=== PATIENT | female | born 1950 | race American Indian/Alaskan Native ===

== ENCOUNTER 2017-10-23 12:02 | Day surgery (SDC) | payer MEDICARE, MEDICAID ==
[~2017-10-23 12:02] MED LIST: Lactated Ringer's 500 ML IV ONE; Phenylephrine 2.5% Opht Soln OD SCH; Tropicamide 1% Opht SOLUTION OD SCH
[2017-10-23] MEDS ORDERED: Hyaluronidase Human, Recombi 150 U/ML VIAL ONE (12:26)
[2017-10-23] MEDS ORDERED: Tobramycin/Dexamethasone OPHT OINT ONE (12:26)
[2017-10-23] MEDS ORDERED: Chondroitin/Hyaluronate Opth Syringe KIT (0.55 ml-0.5 ml) IO ONE (12:26)
[2017-10-23] MEDS ORDERED: Tetracaine 0.5% Ophth (OR ONLY) ONE (12:26)
[2017-10-23] MEDS ORDERED: Carbachol 0.01% IO ONE (12:26)
[2017-10-23] MEDS ORDERED: Povidone Iodine Ophthalmic 5% Soln ONE (12:26)
[2017-10-23 14:00] LABS: CALCIUM 8.7 mg/dl (8.6-10.4)
[2017-10-23 14:20] VITALS: RESP 18
[2017-10-23] MEDS ORDERED: Propofol 10 mg/ml Inj (20 ML) ONE (14:54)
[2017-10-23] MEDS ORDERED: Sodium Chloride 0.9% 1,000 ML IV ONE (15:03)
[2017-10-23] MEDS ORDERED: Midazolam 2 MG/2 ML VIAL ONE (15:07)
[2017-10-23 16:14] VITALS: TEMP 97; O2SAT 100
[2017-10-23] MEDS ORDERED: Sodium Chloride 0.9% 1,000 ML IV SCH (16:15)
[2017-10-23 16:18] VITALS: BP 113/64; PULSE 66
--- NOTE | 2017-10-25 05:25 | OP ---
PROCEDURE DATE: 10/23/2017 PREOPERATIVE DIAGNOSIS: Hypermature cataract, right eye. POSTOPERATIVE DIAGNOSIS: Hypermature cataract, right eye. OPERATIVE PROCEDURE: Complex cataract surgery, right eye using VisionBlue. ATTENDING: Eliceo Ellis MD ANESTHESIA: Retrobulbar block. COMPLICATIONS: None. DESCRIPTION OF PROCEDURE: The patient was brought to the operating room and properly identified. Anesthesia staff administered intravenous sedation and retrobulbar block was given to the surgical eye. The patient was then prepped and draped in the usual sterile fashion. Attention was turned to the surgical eye. A lid speculum was placed into interpalpebral fissure. Sitting temporally, two paracentesis incisions were made. The anterior chamber was filled with viscoelastic and a triplanar clear corneal incision was made. Using a cystitome, anterior capsular leaflet was created. Utrata forceps were used to create a continuous curvilinear capsulorrhexis. Balanced salt solution on a cannula was used to hydrodissect and hydrodelineate the lens. The lens was then phacoemulsified with no complications. Automated irrigation and aspiration was used to remove the cortex. Viscoelastic was used to deepen the anterior chamber. The lens was placed in the capsular bag. Automated irrigation and aspiration was used to remove the viscoelastic. The anterior chamber was filled with Miochol. The wounds were hydrated with balanced salt solution. There was noted to be no leak at the end of the case and the lens was well positioned. The lid speculum was removed. The eye was given antibiotics and steroids and covered with a patch and shield. The patient was returned to the recovery room in stable condition. ADDENDUM: VisionBlue was used to highlight the anterior capsule due to hypermaturity of the lens. Capsulorhexis was completed with no complications. Eliceo Ellis MD
== END 2017-10-23 16:28 | disposition home or self-care (01) ==
LOC: C.SDS 12:02
PROVIDERS: ATTEND Ophthalmology
DX: H25.20 Age-related cataract, morgagnian type, unspecified eye (principal); Z95.2 Presence of prosthetic heart valve; Z95.0 Presence of cardiac pacemaker; I25.10 Atherosclerotic heart disease of native coronary artery without angina pectoris; I13.2 Hypertensive heart and chronic kidney disease with heart failure and with stage 5 chronic kidney disease, or end stage renal disease; I50.9 Heart failure, unspecified; N18.6 End stage renal disease; E11.22 Type 2 diabetes mellitus with diabetic chronic kidney disease; Z99.2 Dependence on renal dialysis; J44.9 Chronic obstructive pulmonary disease, unspecified; Z86.73 Personal history of transient ischemic attack (TIA), and cerebral infarction without residual deficits; E78.00 Pure hypercholesterolemia, unspecified; I27.20 Pulmonary hypertension, unspecified
CPT/HCPCS: 36415; 66982; 80048; 82948; J2250; J2704; J3010; J3470; J7040; V2632

== ENCOUNTER 2018-04-14 11:57 | Inpatient (IN) | payer MEDICARE, MEDICAID ==
--- NOTE | 2018-04-14 14:00 | C.PDOC ---
History Of Present Illness 67-year-old female with a history of end stage renal disease, referred to the ED for medical clearance for hemodialysis. On arrival, patient is not cooperating with history, states she does not know why she is here. As per primary doctor, patient has been missing sessions of dialysis. She offers no physical complaints at this time. Patient currently denies any headaches, weakness, chest pain, SOB, weakness, leg pain, fever, chills, abdominal pain, nausea, or vomiting. Time Seen by Provider: 04/14/18 13:55 Chief Complaint (Nursing): Medical Clearance History Per: Patient History/Exam Limitations: no limitations Onset/Duration Of Symptoms: Days Current Symptoms Are (Timing): Still Present Severity: None Pain Scale Rating Of: 0 Past Medical History Reviewed: Historical Data, Nursing Documentation, Vital Signs Vital Signs: Last Vital Signs Temp 98 F 04/16/18 12:30 Pulse 80 04/16/18 09:30 Resp 20 04/16/18 12:30 BP 82/42 L 04/16/18 12:30 Pulse Ox 99 04/16/18 12:30 - Medical History PMH: CHF, Diabetes, HTN, Hypercholesterolemia, Chronic Kidney Disease Surgical History: Family History: States: No Known Family Hx - Social History Hx Tobacco Use: No Hx Alcohol Use: No (unknown) Hx Substance Use: No - Immunization History Hx Tetanus Toxoid Vaccination: No Hx Influenza Vaccination: Yes Hx Pneumococcal Vaccination: No Review Of Systems Constitutional: Negative for: Fever, Chills Eyes: Positive for: Other (chronic left eye closing). Negative for: Vision Change ENT: Negative for: Nose Congestion Cardiovascular: Negative for: Chest Pain, Palpitations Respiratory: Negative for: Cough, Shortness of Breath Gastrointestinal: Negative for: Nausea, Vomiting, Abdominal Pain, Diarrhea Neurological: Negative for: Weakness, Numbness, Altered Mental Status, Headache , Dizziness Physical Exam - Physical Exam Appears: Non-toxic, No Acute Distress Skin: Warm, Dry, No Rash Head: Atraumatic, Normacephalic Eye(s): bilateral: PERRL, EOMI, left: Other (left eye appears closed, chronic as per patient) Oral Mucosa: Moist Neck: Normal ROM, Supple Chest: No Tenderness, Other (Subclavian cath in place to left chest) Cardiovascular: Rhythm Regular, No Murmur Respiratory: Normal Breath Sounds, No Rales, No Rhonchi, No Wheezing Gastrointestinal/Abdominal: Soft, No Tenderness, No Distention, No Guarding Back: Normal Inspection, No CVA Tenderness Extremity: Bilateral: Atraumatic, No Pedal Edema, Normal Color And Temperature, Normal ROM Pulses: Left Dorsalis Pedis: Normal, Right Dorsalis Pedis: Normal Neurological/Psych: Oriented x3, Normal Speech Gait: Steady ED Course And Treatment - Laboratory Results Result Diagrams: 04/16/18 11:15 04/16/18 11:15 Medical Decision Making Medical Decision Making: Initial Impression: ESRD, here for medical clearance for hemodialysis Plan: * Labs * Nephrology consult for hemodialysis Case discussed with Dr. Sales, equipment coordinator, who ordered palliative care as well as psychiatric consult for the patient. 3:35pm Spoke to Dr. Phipps, who accepts the patient for admission. Disposition - Disposition Disposition: HOSPITALIZED Disposition Time: 15:42 Condition: GOOD - Clinical Impression Clinical Impression: Medical assessment, ESRD (end stage renal disease) - Scribe Statement The provider has reviewed the documentation as recorded by the Leigh Layne Provider Attestation: All medical record entries made by the Leigh were at my direction and personally dictated by me. I have reviewed the chart and agree that the record accurately reflects my personal performance of the history, physical exam, medical decision making, and the department course for this patient. I have also personally directed, reviewed, and agree with the discharge instructions and disposition.
[2018-04-14 14:42] LABS: BASO # 0.1 K/uL (0.0-0.2); EOS # 0.3 K/uL (0.0-0.7); EOS % 4.7 % (0.0-4.0); HEMOGLOBIN 13.1 g/dL (11.0-16.0); LYMPH # 1.2 K/uL (1.0-4.3); LYMPH % 18.6 % (20.0-40.0); MEAN CELL VOLUME 91.6 fL (81.0-99.0); MEAN CORPUSCULAR HEMOGLOBIN 29.8 pg (27.0-31.0); MEAN CORPUSCULAR HGB CONC 32.5 g/dL (33.0-37.0); MEAN PLATELET VOLUME 9.3 fL (7.2-11.7); MONO # 0.5 K/uL (0.0-0.8); MONO % 7.1 % (0.0-10.0); NEUT # 4.5 K/uL (1.8-7.0); NEUT % 68.6 % (50.0-75.0); NRBC % 0.1 % (0.0-2.0); RBC 4.4 Mil/uL (3.80-5.20); RED CELL DISTRIBUTION WIDTH 15.9 % (11.5-14.5); WHITE BLOOD COUNT 6.5 K/uL (4.8-10.8)
[2018-04-14 15:25] LABS: ALB/GLOB RATIO 1.1 (1.0-2.1); ALBUMIN 4.7 g/dL (3.5-5.0); CALCIUM 9.7 mg/dl (8.6-10.4)
--- NOTE | 2018-04-14 16:13 | C.PDOC ---
History Of Present Illness Palliative Consult called by Doctor Sales for goals of care discussion Patient is a 67 yo female admitted from [facility] after refusing HD for 1 week. Patient's primary MD is Doctor Lidia Worthington. Patient was sent to ED for medical clearance for HD. On admission BUN 93, Specialist Wound Care 7.8. HD called to ED for patient to be transferred to inpatient HD unit now. medical technicians in her way to obtain consent from the patient. I spoke to Doctor Worthington over the phone who confirmed patient's tendency to ocassionally refuse HD when in bad mood. Spoke to patient's brother Wes who agreed with preceding to HD. PMH: ESRD on HD, CHF, DM, HTN, legaly blind PSH: Heart surgeries, eye surgeries, port o cath placement Soc. Hx: single, [facility] resident , Brother Marcus is surrogate decision maker , CODE status: DNR/DNI, POLST on chart Chief complaint:Patient complains of pain to her eyes and says " my eyeballs hurt". Patient denies nausea, dizziness, headache, SOB ROS: Patient easily irritated and ROS is limited from the patient. Physical exam On physical exam, patient is alert, oriented x 3 with speech that is clear. patient keeps her eyes open. When asked to open her eyes , patient reports is legally blind and her eye balls hurt. patient reports recently having eye surgeries but unable to provide more details. patient is requesting pain meds and says she had not had her eye drops. Left eye is slightly reddened and looks inflamed, slight swelling of upper eye lid. tYLENOL po GIVEN JUST RECENTLY. Breathing is regular, no SOB. Tight upper chest Waets-w-xnih for HD. Patient reports inablity to breath is is flat in bed. O2Sat 99% ra HR 117 , bp 176/87 Abdomen soft.Patient is able to freely move upper and lower extremities, mild pedal edema. I discussed my findings with Doctor Worthington, patient's brother Marcus and nursing staff. Discussed with patient the need for HD and she agreed as well. told patient about phone conversation with her brother Marcus. Marcus gave verbal consent for HD. This was witnessed by Parvez the ED charge nurse. Impression * Chronically ill lady with complex medical Hx * Elevated kidney functions ( BUN/emt b) due to patient's non compliance with scheduled HD at [facility] * Legaly blind * Acute eye pain 2nd to recently eye Sx as per patient * SOB if flat in bed possible due to fluid overload and missed HD * POLST on chart Suggestions * Agree with STAT HD * Assist patient with ADLs and promote safety * Tylenol PRN eye pain * Resume Eye drops as from [facility] * Keep HOB elevated * DNR/DNI * Would transfer patient back to [place] after HD if stable Time Seen by Provider: 04/14/18 13:55 Chief Complaint (Nursing): Medical Clearance Past Medical History Vital Signs: Last Vital Signs Temp 98.1 F 04/15/18 00:00 Pulse 88 04/15/18 00:00 Resp 20 04/15/18 00:00 BP 171/94 H 04/15/18 06:00 Pulse Ox 98 04/15/18 00:00 - Medical History PMH: CHF, Diabetes, HTN, Hypercholesterolemia, Chronic Kidney Disease Surgical History: Family History: States: No Known Family Hx - Social History Hx Tobacco Use: No Hx Alcohol Use: No (unknown) Hx Substance Use: No - Immunization History Hx Tetanus Toxoid Vaccination: No Hx Influenza Vaccination: Yes Hx Pneumococcal Vaccination: No ED Course And Treatment - Laboratory Results Result Diagrams: 04/14/18 14:37 04/14/18 14:37 O2 Sat by Pulse Oximetry: [address] Lidia Worthington Doctor Will See Patient In The: ED Counseled Patient/Family Regarding: Diagnosis - Disposition Disposition: HOSPITALIZED Disposition Time: 00:00 Condition: FAIR - POA Present On Arrival: None - Clinical Impression Clinical Impression: Medical assessment, ESRD (end stage renal disease)
--- NOTE | 2018-04-14 16:21 | CP.PCM.HP ---
<Minda Roy L - Last Filed: 04/14/18 18:29> History of Present Illness - History of Present Illness History of Present Illness: Resident History & Physical for Hospitalist Service Patient is a 76 year old female with past medical history ESRD on HD, T2DM, HTN , COPD, HLD, CHF presenting from [facility] with chief complaint of need for dialysis. History was difficult to obtain as patient was not in a good mood and unwilling to cooperate. Patient was sent by PMD as there was concern that the patient was refusing dialysis. Patient is legally blind and complained of pain in her eyes which she states is chronic. At this time she has no other complaint. Denies headache, dizziness, fever, chills, nausea, vomiting, chest pain, shortness of breath, abdominal pain, changes in bowel movements, dysuria. Past medical history: ESRD on HD, T2DM, HTN, COPD, HLD, CHF Past surgical: eye surgeries, pacemaker placement, portacath Social: denies alcohol, tobacco, recreational drug use Allergies: NKDA Family history: Mother (T2DM) PMD: Dr. Worthington Present on Admission - Present on Admission Any Indicators Present on Admission: No Review of Systems - Constitutional Constitutional: absent: Chills, Fever, Headache - EENT Eyes: absent: Change in Vision Ears: absent: Abnormal Hearing Nose/Mouth/Throat: absent: Sore Throat - Cardiovascular Cardiovascular: absent: Chest Pain, Diaphoresis, Dyspnea - Respiratory Respiratory: absent: Cough, Dyspnea, Hemoptysis - Gastrointestinal Gastrointestinal: absent: Abdominal Pain, Change in Bowel Habits, Diarrhea - Genitourinary Genitourinary: absent: Dysuria, Flank Pain - Neurological Neurological: absent: Abnormal Speech, Confusion, Dizziness, Headaches Past Patient History - Past Medical History & Family History Past Medical History?: Yes - Past Social History Smoking Status: Former Smoker - CARDIAC Hx Congestive Heart Failure: Yes Hx Hypercholesterolemia: Yes Hx Hypertension: Yes - NEUROLOGICAL Hx Neurological Disorder: Yes - HEENT Hx HEENT Problems: Yes Hx Cataracts: Yes - RENAL Hx Chronic Kidney Disease: Yes - ENDOCRINE/METABOLIC Hx Endocrine Disorders: Yes Hx Diabetes Mellitus Type 2: Yes - MUSCULOSKELETAL/RHEUMATOLOGICAL Hx Musculoskeletal Disorders: Yes Hx Falls: No - PSYCHIATRIC Hx Substance Use: No - SURGICAL HISTORY Hx Surgeries: Yes Hx Open Heart Surgery: Yes Hx Vascular Access Device: Yes (RIGHT CHEST PERMACATH) - ANESTHESIA Hx Anesthesia: Yes Hx Anesthesia Reactions: No Hx Malignant Hyperthermia: No Meds Allergies/Adverse Reactions: Allergies Allergy/AdvReac Type Severity Reaction Status Date / Time No Known Allergies Allergy Verified 08/05/15 06:38 Physical Exam - Constitutional Appears: Non-toxic, No Acute Distress - Head Exam Head Exam: ATRAUMATIC, NORMOCEPHALIC - Eye Exam Additional comments: Both eyes closed - ENT Exam ENT Exam: Mucous Membranes Moist, Normal Exam - Neck Exam Neck exam: Positive for: Normal Inspection - Respiratory Exam Respiratory Exam: Clear to Auscultation Bilateral, NORMAL BREATHING PATTERN - Cardiovascular Exam Cardiovascular Exam: REGULAR RHYTHM, +S1, +S2 - GI/Abdominal Exam GI & Abdominal Exam: Normal Bowel Sounds, Soft. absent: Tenderness - Extremities Exam Extremities exam: Positive for: normal inspection, pedal pulses present. Negative for: calf tenderness - Neurological Exam Neurological exam: Alert, CN II-XII Intact, Oriented x3 - Skin Skin Exam: Dry, Intact Results - Vital Signs Recent Vital Signs: Last Vital Signs Temp Pulse 78 04/14/18 13:20 Resp 16 04/14/18 13:20 BP 175/89 H 04/14/18 13:20 Pulse Ox 99 04/14/18 16:13 - Labs Result Diagrams: 04/14/18 14:37 04/14/18 14:37 Labs: Laboratory Results - last 24 hr 04/14/18 04/14/18 14:37 14:37 WBC 6.5 RBC 4.40 Hgb 13.1 D Hct 40.3 MCV 91.6 D MCH 29.8 MCHC 32.5 L RDW 15.9 H Plt Count 140 MPV 9.3 Neut % (Auto) 68.6 Lymph % (Auto) 18.6 L Placer % (Auto) 7.1 Eos % (Auto) 4.7 H Baso % (Auto) 1.0 Neut # (Auto) 4.5 Lymph # (Auto) 1.2 Placer # (Auto) 0.5 Eos # (Auto) 0.3 Baso # (Auto) 0.1 Sodium 146 Potassium 5.2 Chloride 108 H Carbon Dioxide 21 L Anion Gap 22 H BUN 93 H Creatinine 7.8 H* D Est GFR ( Amer) 6 Est GFR (Non-Af Amer) 5 Random Glucose 101 Calcium 9.7 Total Bilirubin 0.5 AST 19 ALT 20 Alkaline Phosphatase 75 Total Protein 8.8 H Albumin 4.7 Globulin 4.1 H Albumin/Globulin Ratio 1.1 Assessment & Plan - Assessment and Plan (Free Text) Plan: Eye pain - Tylenol/codeine 300/30 mg PRN severe pain - Tramadol 50 mg PO TID moderate pain ESRD on HD - Creatinine 7.8 - Patient to receive dialysis today - Phoslo 667 mg PO TID CHF - Patient currently asymptomatic - ECHO from 07/2015 shows moderately to severely impaired systolic function. Normal right ventricular systolic function. Bioprosthetic mitral valve which appears to have normal function. Moderate TR. Moderate-severe pulmonary hypertension. - Lasix 40 mg PO daily - Followup CXR Hypertension - Coreg 12.5 mg PO QOD6 - Continue to monitor T2DM - Novolin ISS - Accuchecks COPD - Ventolin HFA 2 puff IH RQ4 PPX - Heparin 5000 units SC Q8H - Pepcid 20 mg PO daily Minda Roy PGY-1 - Date & Time Date: 04/14/18 Time: 04:30 <Esteban Phipps H - Last Filed: 04/14/18 18:37> Results - Vital Signs Recent Vital Signs: Last Vital Signs Temp 98.1 F 04/14/18 16:55 Pulse 69 04/14/18 17:10 Resp 15 04/14/18 17:25 BP 134/100 H 04/14/18 17:25 Pulse Ox 100 04/14/18 17:25 - Labs Result Diagrams: 04/14/18 14:37 04/14/18 14:37 Labs: Laboratory Results - last 24 hr 04/14/18 04/14/18 14:37 14:37 WBC 6.5 RBC 4.40 Hgb 13.1 D Hct 40.3 MCV 91.6 D MCH 29.8 MCHC 32.5 L RDW 15.9 H Plt Count 140 MPV 9.3 Neut % (Auto) 68.6 Lymph % (Auto) 18.6 L Placer % (Auto) 7.1 Eos % (Auto) 4.7 H Baso % (Auto) 1.0 Neut # (Auto) 4.5 Lymph # (Auto) 1.2 Placer # (Auto) 0.5 Eos # (Auto) 0.3 Baso # (Auto) 0.1 Sodium 146 Potassium 5.2 Chloride 108 H Carbon Dioxide 21 L Anion Gap 22 H BUN 93 H Creatinine 7.8 H* D Est GFR ( Amer) 6 Est GFR (Non-Af Amer) 5 Random Glucose 101 Calcium 9.7 Total Bilirubin 0.5 AST 19 ALT 20 Alkaline Phosphatase 75 Total Protein 8.8 H Albumin 4.7 Globulin 4.1 H Albumin/Globulin Ratio 1.1 Attending/Attestation - Attestation I have personally seen and examined this patient.: Yes I have fully participated in the care of the patient.: Yes I have reviewed all pertinent clinical information: Yes Notes (Text): Medical attending: Patient was seen and examined by me. Agree with the above note by the resident The patient was brought in due to concerns of her missing her HD. It is not entirely clear why, the patient is alert and orietnated x 3 however she is reluctant to talk to us. She did not seem to have any immediate psychiatry disorder when we came and tried to examine the patient - however she was very reluctant to talk to me and only after sometime would she allow me to do a very brief physical exam. Esteban Phipps
[2018-04-14] MEDS ORDERED: Albuterol HFA 90 mcg/actuation (8 g) IH PRN (17:40)
[2018-04-14] MEDS ORDERED: guaiFENesin DM 100 mg-10 mg/5 ml UD PO PRN (17:50)
[2018-04-14] MEDS ORDERED: Dextrose 50% SYRINGE Inj (50 ml) IV PRN (18:35)
[2018-04-14] MEDS ORDERED: Glucagon Recombinant 1 mg Inj IM PRN (18:35)
[2018-04-14] MEDS: Simethicone 80 mg Chewtab PO SCH ×2 (21:18→23:48)
[2018-04-14] MEDS: Vitamins A & D Oint UD Foilpak TOP SCH (21:19)
[2018-04-14] MEDS: PrednisoLONE 1% Opht Susp(5 ml) OD SCH (21:19)
[2018-04-14] MEDS: (Novolin R) Insulin Human Regular 100 units/ml vial SC SCH (21:37)
[2018-04-14] MEDS: Acetaminophen-Codeine 300/30 mg Tab PO PRN (23:43)
--- NOTE | 2018-04-15 00:21 | CARD ---
APPROVED REPORT Date of service: 04/14/2018 EKG Measurement Heart [id number] <Conclusion> Atrial-sensed ventricular-paced rhythm Abnormal ECG
[2018-04-15] MEDS: Simethicone 80 mg Chewtab PO SCH ×3 (05:30→18:00)
[2018-04-15] MEDS: (Novolin R) Insulin Human Regular 100 units/ml vial SC SCH ×3 (08:18→16:30)
[2018-04-15] MEDS: Multivitamin Vitamin B Complex (Nephro-Vite) Tab PO SCH (08:18)
[2018-04-15] MEDS: Vitamins A & D Oint UD Foilpak TOP SCH ×2 (10:28→18:00)
[2018-04-15] MEDS: PrednisoLONE 1% Opht Susp(5 ml) OD SCH ×2 (10:31→18:00)
[2018-04-15] MEDS: Acetaminophen-Codeine 300/30 mg Tab PO PRN (11:35)
[2018-04-15 12:22] LABS: BASO # 0.1 K/uL (0.0-0.2); BASO % 0.8 % (0.0-2.0); EOS # 0.1 K/uL (0.0-0.7); EOS % 1.5 % (0.0-4.0); HEMOGLOBIN 13.7 g/dL (11.0-16.0); LYMPH % 16.2 % (20.0-40.0); MEAN CELL VOLUME 91.3 fL (81.0-99.0); MEAN CORPUSCULAR HEMOGLOBIN 30.2 pg (27.0-31.0); MEAN CORPUSCULAR HGB CONC 33.1 g/dL (33.0-37.0); MEAN PLATELET VOLUME 9.8 fL (7.2-11.7); MONO # 0.3 K/uL (0.0-0.8); MONO % 5.5 % (0.0-10.0); NEUT # 4.7 K/uL (1.8-7.0); RBC 4.53 Mil/uL (3.80-5.20); WHITE BLOOD COUNT 6.2 K/uL (4.8-10.8)
[2018-04-15 13:01] LABS: ALB/GLOB RATIO 1.1 (1.0-2.1); ALBUMIN 4.5 g/dL (3.5-5.0); CALCIUM 9.2 mg/dl (8.6-10.4)
--- NOTE | 2018-04-15 15:43 | CP.PCM.PN ---
<Emperatriz Lucas - Last Filed: 04/15/18 16:11> Subjective - Date & Time of Evaluation Date of Evaluation: 04/15/18 Time of Evaluation: 09:25 - Subjective Subjective: Pt examined at bedside. Nurse reports pt has been refusing morning labs and well as morning meds until she gets to speak w/ a Dr. After meeting pt, we discussed the importance of taking meds and she agreed. Pt appears confused, she believes her nurse has sent her to [facility] [place]. Pt reports she has eye discomfort, burning and tearing since her eye surgeries. Patient also reports that she doesn't refuse HD at the [place] [facility], but rather the aides do not bring her to sessions as planned. Pt denies headache, dizziness, chest pain, SOB, abd pain, nausea, vomiting, diarrhea. Objective - Vital Signs/Intake and Output Vital Signs (last 24 hours): Temp Pulse Resp BP Pulse Ox 98.1 F 79 20 172/107 H 99 04/15/18 07:09 04/15/18 07:09 04/15/18 07:09 04/15/18 11:38 04/15/18 08:18 Intake and Output: 04/15/18 04/15/18 06:59 18:59 Intake Total 150 Balance 150 - Medications Medications: Current Medications Acetaminophen/Codeine Phosphate (Tylenol/Codeine 300 Mg/30 Mg) 1 ea PO Q6 PRN PRN Reason: Pain, severe (8-10) Last Admin: 04/15/18 11:35 Dose: 1 ea Albuterol (Ventolin Hfa 90 Mcg/Actuation (8 G)) 2 puff IH RQ4 PRN PRN Reason: Shortness of Breath Amlodipine Besylate (Norvasc) 10 mg PO DAILY [facility] Calcium Acetate (Phoslo) 667 mg PO TID [facility] Last Admin: 04/15/18 13:38 Dose: Not Given Carvedilol (Coreg) 12.5 mg PO BID [facility] Last Admin: 04/15/18 10:20 Dose: 12.5 mg Dextrose (Dextrose 50% Inj) 0 ml IV STAT PRN; Protocol PRN Reason: Hypoglycemia Protocol Dextrose (Glutose 15) 0 gm PO ONCE PRN; Protocol PRN Reason: Hypoglycemia Protocol Famotidine (Pepcid) 20 mg PO HS [facility] Last Admin: 08/21/18 21:18 Dose: 20 mg Furosemide (Lasix) 40 mg PO DAILY [facility] Last Admin: 04/15/18 10:19 Dose: 40 mg Glucagon (Glucagen Diagnostic Kit) 1 mg IM STAT PRN; Protocol PRN Reason: Hypoglycemia Protocol Guaifenesin/Dextromethorphan (Robitussin Dm) 5 ml PO Q6H PRN PRN Reason: Cough Heparin Sodium (Porcine) (Heparin) 5,000 units SC Q8 [facility] Last Admin: 04/15/18 13:38 Dose: Not Given Hydralazine HCl (Apresoline) 25 mg PO Q4 PRN PRN Reason: Other Dextrose (Dextrose 5% In Water 1000 Ml) 1,000 mls @ 0 mls/hr IV .Q0M PRN; Protocol; Per Protocol PRN Reason: Hypoglycemia Protocol Insulin Human Regular (Novolin R) 0 unit SC ACHS [facility] PRN Reason: Protocol Last Admin: 04/15/18 11:39 Dose: Not Given Prednisolone Acetate (Pred Forte 1% Opht Susp) 0 ml OD BID [facility] Last Admin: 04/15/18 10:31 Dose: Not Given Simethicone (Mylicon Chew Tab) 80 mg PO Q6 [facility] Last Admin: 04/15/18 12:41 Dose: Not Given Tramadol HCl (Ultram) 50 mg PO TID PRN PRN Reason: Pain, moderate (4-7) Last Admin: 04/15/18 06:44 Dose: 50 mg Vitamin A (Vitamin A & D Oint Ud Foilpak) 1 ea TOP BID [facility] Last Admin: 04/15/18 10:28 Dose: 1 ea Vitamin B Complex/Vit C/Folic Acid (Nephro-Chapito) 1 tab PO 0800 [facility] Last Admin: 04/15/18 08:18 Dose: Not Given - Labs Labs: 04/15/18 12:08 04/15/18 12:08 - Constitutional Appears: Non-toxic, No Acute Distress - Head Exam Head Exam: ATRAUMATIC, NORMAL INSPECTION, NORMOCEPHALIC - Eye Exam Eye Exam: EOMI, Normal appearance Pupil Exam: PERRL - ENT Exam ENT Exam: Mucous Membranes Moist, Normal Exam - Neck Exam Neck Exam: Normal Inspection. absent: Lymphadenopathy - Respiratory Exam Respiratory Exam: Clear to Ausculation Bilateral, NORMAL BREATHING PATTERN. absent: Rales, Wheezes - Cardiovascular Exam Cardiovascular Exam: REGULAR RHYTHM, +S1, +S2. absent: Tachycardia, Murmur - GI/Abdominal Exam GI & Abdominal Exam: Soft, Normal Bowel Sounds. absent: Distended, Tenderness - Extremities Exam Extremities Exam: Normal Capillary Refill, Normal Inspection. absent: Calf Tenderness, Pedal Edema - Neurological Exam Neurological Exam: Alert, Awake, Normal Gait - Psychiatric Exam Psychiatric exam: Agitated - Skin Skin Exam: Dry, Intact, Normal Color, Warm Assessment and Plan - Assessment and Plan (Free Text) Assessment: 67 yo F admitted for HD non compliance ESRD on HD - s/p HD 04/14 - Creatinine 4.1 - Phoslo 667 mg PO TID CHF - Patient currently asymptomatic - ECHO from 07/2015 shows moderately to severely impaired systolic function. Normal right ventricular systolic function. Bioprosthetic mitral valve which appears to have normal function. Moderate TR. Moderate-severe pulmonary hypertension. - Lasix 40 mg PO daily HTN - Coreg 12.5 mg PO BID - Hydralazine 25mg PO PRN - Continue to monitor DM2 - Novolin ISS - Accuchecks ACHS COPD - Ventolin HFA 2 puff IH RQ4 Eye pain - Tylenol/codeine 300/30 mg PRN severe pain - Tramadol 50 mg PO TID moderate pain PPX - Heparin 5000 units SC Q8H - Pepcid 20 mg PO daily DNR/DNI <Esteban Phipps H - Last Filed: 04/15/18 18:07> Objective - Vital Signs/Intake and Output Vital Signs (last 24 hours): Temp Pulse Resp BP Pulse Ox 98.1 F 79 20 172/107 H 99 04/15/18 07:09 04/15/18 07:09 04/15/18 07:09 04/15/18 11:38 04/15/18 08:18 Intake and Output: 04/15/18 04/15/18 06:59 18:59 Intake Total 150 Balance 150 - Medications Medications: Current Medications Acetaminophen/Codeine Phosphate (Tylenol/Codeine 300 Mg/30 Mg) 1 ea PO Q6 PRN PRN Reason: Pain, severe (8-10) Last Admin: 04/15/18 11:35 Dose: 1 ea Albuterol (Ventolin Hfa 90 Mcg/Actuation (8 G)) 2 puff IH RQ4 PRN PRN Reason: Shortness of Breath Calcium Acetate (Phoslo) 667 mg PO TID [facility] Last Admin: 04/15/18 13:38 Dose: Not Given Carvedilol (Coreg) 12.5 mg PO BID [facility] Last Admin: 04/15/18 10:20 Dose: 12.5 mg Dextrose (Dextrose 50% Inj) 0 ml IV STAT PRN; Protocol PRN Reason: Hypoglycemia Protocol Dextrose (Glutose 15) 0 gm PO ONCE PRN; Protocol PRN Reason: Hypoglycemia Protocol Famotidine (Pepcid) 20 mg PO HS [facility] Last Admin: 04/14/18 21:18 Dose: 20 mg Furosemide (Lasix) 40 mg PO DAILY [facility] Last Admin: 04/15/18 10:19 Dose: 40 mg Glucagon (Glucagen Diagnostic Kit) 1 mg IM STAT PRN; Protocol PRN Reason: Hypoglycemia Protocol Guaifenesin/Dextromethorphan (Robitussin Dm) 5 ml PO Q6H PRN PRN Reason: Cough Heparin Sodium (Porcine) (Heparin) 5,000 units SC Q8 [facility] Last Admin: 04/15/18 13:38 Dose: Not Given Hydralazine HCl (Apresoline) 25 mg PO Q4 PRN PRN Reason: Other Dextrose (Dextrose 5% In Water 1000 Ml) 1,000 mls @ 0 mls/hr IV .Q0M PRN; Protocol; Per Protocol PRN Reason: Hypoglycemia Protocol Insulin Human Regular (Novolin R) 0 unit SC ACHS [facility] PRN Reason: Protocol Last Admin: 04/15/18 11:39 Dose: Not Given Prednisolone Acetate (Pred Forte 1% Opht Susp) 0 ml OD BID [facility] Last Admin: 04/15/18 10:31 Dose: Not Given Simethicone (Mylicon Chew Tab) 80 mg PO Q6 [facility] Last Admin: 04/15/18 12:41 Dose: Not Given Tramadol HCl (Ultram) 50 mg PO TID PRN PRN Reason: Pain, moderate (4-7) Last Admin: 04/15/18 06:44 Dose: 50 mg Vitamin A (Vitamin A & D Oint Ud Foilpak) 1 ea TOP BID [facility] Last Admin: 04/15/18 10:28 Dose: 1 ea Vitamin B Complex/Vit C/Folic Acid (Nephro-Chapito) 1 tab PO 0800 [facility] Last Admin: 04/15/18 08:18 Dose: Not Given - Labs Labs: 04/15/18 12:08 04/15/18 12:08 Attending/Attestation - Attestation I have personally seen and examined this patient.: Yes I have fully participated in the care of the patient.: Yes I have reviewed all pertinent clinical information, including history, physical exam and plan: Yes Notes (Text): 04/15/18 18:07 Medical attending: Patient was seen and examined by me, reviewed the above note by the medical reimbursement specialist, and agree with the above note. The patient was more willing to talk to us today when we saw her. She did not have any acute complaints or concerns. She explained to us that she would rather have not been here. As mentioned yesterday she had hemodialysis. She denied chest pain, shortness of breath, denied headaches, denied abdominal pain Thank you very much, Esteban Phipps
--- NOTE | 2018-04-15 16:13 | CP.PCM.CON ---
History of Present Illness - History of Present Illness History of Present Illness: Nephrology Consultation Note: Assessment: Stable non-compliant to HD and missed HD HTN urgency Diabetic chronic Kidney Disease (E11.22) Hypertensive Chronic Kidney Disease (I12.0) End stage renal disease (N18.6) dependence on hemodialysis (Z99.2) (TTS) via PC Anemia (D64.9), Hyperphosphatemia (E83.39), Secondary Hyperparathyroidism (E21.1 ), HTN (I12.0) Plan: Pt had HD last night, No acute need for dialysis today. Will plan for dialysis tomorrow. Continue with Nephrovite 1 tab/day. PRBC as needed for anemia. not on KWAKU with dialysis as last Hb 13.7 Continue with phos binders, last phos level 4.0 Continue with calcitriol. BP control with meds as ordered. Patient not on RAAS rl. BP usually better controlled in outpt HD unit. anticipate improvement in BP with HD. added prn hydralazine Glycemic control, Dialysis consistent diet Further work up/management as per primary team Dose meds/antibiotics (if needed) for ESRD status. Avoid fleets enema/magnesium based laxatives. psych and palliative care consult requested. d/c planning Thanks for allowing me to participate in care of your patient. Will follow patient with you. Please call if any Qs Dr Paulino Sales Office: [phone] Chief Complaint; none at this time Reason for consult; ESRD HPI: Pt is a 67 F with hx of ESRD on hemodialysis (TTS) via PC , last dialysis 2 weeks ago as mostly non-compliant to HD and refuses HD often and or cuts treatment time, chronic anemia, hyperphosphatemia, secondary hyperparathyroidism , Diabetes Mellitus, hypertension was transferred to hospital as she missed HD approx for 2 weeks. Renal consult requested for ESRD management. pt was seen, she wasn't much interested in discussing. said, feels okay ROS: unable to obtain much from her as she wasn't communicating much Physical Examination: General Appearance: Comfortable, in no acute respiratory distress, co-operative . Vitals reviewed and noted as below Head; Atraumatic, normocephalic ENT: no ulcers no thrush. Tongue is midline. Oropharynx: no rash or ulcers. 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 Breath sounds bilateral equal and clear Heart: Normal rate. s1s2 normal. No rub or gallop. Extremities: 1+ edema. No varicose veins Neurological: Patient is sleeping but later awake. No focal deficit. Strength bilateral appropriate and equal Skin: Warm and dry. Normal turgor. No rash. Palpitation: Normal elasticity for age Abdomen: Abdomen is soft. Bowel sounds +. There is no abdominal tenderness, no guarding/rigidity or organomegaly Psych: lack insight and has flat affect/mood MSK: no joint tenderness or swelling. Digits and nails normal, no deformity : kidney or bladder not palpable Access: PC Labs/imaging reviewed. Past medical history, past surgical history, family history, social history, allergy reviewed and noted as below Family Hx: no hx of CKD. Non contributory Past Patient History - Past Medical History & Family History Past Medical History?: Yes - Past Social History Smoking Status: Unknown If Ever Smoked - CARDIAC Hx Congestive Heart Failure: Yes Hx Hypercholesterolemia: Yes Hx Hypertension: Yes - NEUROLOGICAL Hx Neurological Disorder: Yes - HEENT Hx HEENT Problems: Yes Hx Cataracts: Yes - RENAL Hx Chronic Kidney Disease: Yes - ENDOCRINE/METABOLIC Hx Endocrine Disorders: Yes Hx Diabetes Mellitus Type 2: Yes - MUSCULOSKELETAL/RHEUMATOLOGICAL Hx Falls: No - PSYCHIATRIC Hx Substance Use: No - SURGICAL HISTORY Hx Surgeries: Yes Hx Open Heart Surgery: Yes Hx Vascular Access Device: Yes (RIGHT CHEST PERMACATH) - ANESTHESIA Hx Anesthesia: Yes Hx Anesthesia Reactions: No Hx Malignant Hyperthermia: No Meds Allergies/Adverse Reactions: Allergies Allergy/AdvReac Type Severity Reaction Status Date / Time No Known Allergies Allergy Verified 08/05/15 06:38 - Medications Medications: Current Medications Acetaminophen/Codeine Phosphate (Tylenol/Codeine 300 Mg/30 Mg) 1 ea PO Q6 PRN PRN Reason: Pain, severe (8-10) Last Admin: 04/15/18 11:35 Dose: 1 ea Albuterol (Ventolin Hfa 90 Mcg/Actuation (8 G)) 2 puff IH RQ4 PRN PRN Reason: Shortness of Breath Calcium Acetate (Phoslo) 667 mg PO TID [facility] Last Admin: 04/15/18 13:38 Dose: Not Given Carvedilol (Coreg) 12.5 mg PO BID [facility] Last Admin: 04/15/18 10:20 Dose: 12.5 mg Dextrose (Dextrose 50% Inj) 0 ml IV STAT PRN; Protocol PRN Reason: Hypoglycemia Protocol Dextrose (Glutose 15) 0 gm PO ONCE PRN; Protocol PRN Reason: Hypoglycemia Protocol Famotidine (Pepcid) 20 mg PO HS [facility] Last Admin: 04/14/18 21:18 Dose: 20 mg Furosemide (Lasix) 40 mg PO DAILY [facility] Last Admin: 04/15/18 10:19 Dose: 40 mg Glucagon (Glucagen Diagnostic Kit) 1 mg IM STAT PRN; Protocol PRN Reason: Hypoglycemia Protocol Guaifenesin/Dextromethorphan (Robitussin Dm) 5 ml PO Q6H PRN PRN Reason: Cough Heparin Sodium (Porcine) (Heparin) 5,000 units SC Q8 [facility] Last Admin: 04/15/18 13:38 Dose: Not Given Hydralazine HCl (Apresoline) 25 mg PO Q4 PRN PRN Reason: Other Dextrose (Dextrose 5% In Water 1000 Ml) 1,000 mls @ 0 mls/hr IV .Q0M PRN; Protocol; Per Protocol PRN Reason: Hypoglycemia Protocol Insulin Human Regular (Novolin R) 0 unit SC ACHS [facility] PRN Reason: Protocol Last Admin: 04/15/18 11:39 Dose: Not Given Prednisolone Acetate (Pred Forte 1% Opht Susp) 0 ml OD BID [facility] Last Admin: 04/15/18 10:31 Dose: Not Given Simethicone (Mylicon Chew Tab) 80 mg PO Q6 [facility] Last Admin: 04/15/18 12:41 Dose: Not Given Tramadol HCl (Ultram) 50 mg PO TID PRN PRN Reason: Pain, moderate (4-7) Last Admin: 04/15/18 06:44 Dose: 50 mg Vitamin A (Vitamin A & D Oint Ud Foilpak) 1 ea TOP BID [facility] Last Admin: 04/15/18 10:28 Dose: 1 ea Vitamin B Complex/Vit C/Folic Acid (Nephro-Chapito) 1 tab PO 0800 [facility] Last Admin: 04/15/18 08:18 Dose: Not Given Results - Vital Signs Recent Vital Signs: Last Vital Signs Temp 98.1 F 04/15/18 07:09 Pulse 79 04/15/18 07:09 Resp 20 04/15/18 07:09 BP 172/107 H 04/15/18 11:38 Pulse Ox 99 04/15/18 08:18 - Labs Result Diagrams: 04/15/18 12:08 04/15/18 12:08 Labs: Laboratory Results - last 24 hr 04/14/18 04/15/18 04/15/18 19:12 11:05 12:08 WBC 6.2 RBC 4.53 Hgb 13.7 Hct 41.4 MCV 91.3 MCH 30.2 MCHC 33.1 RDW 15.0 H Plt Count 127 L MPV 9.8 Neut % (Auto) 76.0 H Lymph % (Auto) 16.2 L Jefferson % (Auto) 5.5 Eos % (Auto) 1.5 Baso % (Auto) 0.8 Neut # (Auto) 4.7 Lymph # (Auto) 1.0 Jefferson # (Auto) 0.3 Eos # (Auto) 0.1 Baso # (Auto) 0.1 Sodium Potassium Chloride Carbon Dioxide Anion Gap BUN Creatinine Est GFR ( Amer) Est GFR (Non-Af Amer) POC Glucose (mg/dL) 96 103 Random Glucose Calcium Phosphorus Magnesium Total Bilirubin AST ALT Alkaline Phosphatase Total Protein Albumin Globulin Albumin/Globulin Ratio 04/15/18 12:08 WBC RBC Hgb Hct MCV MCH MCHC RDW Plt Count MPV Neut % (Auto) Lymph % (Auto) Jefferson % (Auto) Eos % (Auto) Baso % (Auto) Neut # (Auto) Lymph # (Auto) Jefferson # (Auto) Eos # (Auto) Baso # (Auto) Sodium 140 Potassium 4.5 Chloride 98 Carbon Dioxide 28 Anion Gap 18 BUN 34 H Creatinine 4.1 H Est GFR ( Amer) 13 Est GFR (Non-Af Amer) 11 POC Glucose (mg/dL) Random Glucose 99 Calcium 9.2 Phosphorus 4.0 Magnesium 2.1 Total Bilirubin 0.6 AST 21 ALT 18 Alkaline Phosphatase 69 Total Protein 8.5 H Albumin 4.5 Globulin 4.0 H Albumin/Globulin Ratio 1.1
[2018-04-16] MEDS: Simethicone 80 mg Chewtab PO SCH ×4 (00:43→17:57)
[2018-04-16] MEDS: (Novolin R) Insulin Human Regular 100 units/ml vial SC SCH ×4 (07:30→21:24)
[2018-04-16] MEDS: Multivitamin Vitamin B Complex (Nephro-Vite) Tab PO SCH (08:56)
[2018-04-16] MEDS: PrednisoLONE 1% Opht Susp(5 ml) OD SCH ×2 (10:00→17:57)
[2018-04-16] MEDS: Vitamins A & D Oint UD Foilpak TOP SCH ×2 (10:00→17:57)
--- NOTE | 2018-04-16 10:15 | CP.PCM.PN ---
Subjective - Date & Time of Evaluation Date of Evaluation: 04/16/18 Time of Evaluation: 07:40 Objective - Vital Signs/Intake and Output Vital Signs (last 24 hours): Temp Pulse Resp BP Pulse Ox 98.6 F 86 20 174/96 H 96 04/16/18 08:00 04/16/18 08:00 04/16/18 08:00 04/16/18 08:00 04/16/18 08:00 - Medications Medications: Current Medications Acetaminophen/Codeine Phosphate (Tylenol/Codeine 300 Mg/30 Mg) 1 ea PO Q6 PRN PRN Reason: Pain, severe (8-10) Last Admin: 04/15/18 11:35 Dose: 1 ea Albuterol (Ventolin Hfa 90 Mcg/Actuation (8 G)) 2 puff IH RQ4 PRN PRN Reason: Shortness of Breath Calcium Acetate (Phoslo) 667 mg PO TID [facility] Last Admin: 04/15/18 18:00 Dose: Not Given Carvedilol (Coreg) 12.5 mg PO BID [facility] Last Admin: 04/15/18 18:00 Dose: Not Given Dextrose (Dextrose 50% Inj) 0 ml IV STAT PRN; Protocol PRN Reason: Hypoglycemia Protocol Dextrose (Glutose 15) 0 gm PO ONCE PRN; Protocol PRN Reason: Hypoglycemia Protocol Famotidine (Pepcid) 20 mg PO HS [facility] Last Admin: 04/15/18 21:35 Dose: Not Given Furosemide (Lasix) 40 mg PO DAILY [facility] Last Admin: 04/15/18 10:19 Dose: 40 mg Glucagon (Glucagen Diagnostic Kit) 1 mg IM STAT PRN; Protocol PRN Reason: Hypoglycemia Protocol Guaifenesin/Dextromethorphan (Robitussin Dm) 5 ml PO Q6H PRN PRN Reason: Cough Heparin Sodium (Porcine) (Heparin) 5,000 units SC Q8 [facility] Last Admin: 04/16/18 05:43 Dose: Not Given Hydralazine HCl (Apresoline) 25 mg PO Q4 PRN PRN Reason: Other Dextrose (Dextrose 5% In Water 1000 Ml) 1,000 mls @ 0 mls/hr IV .Q0M PRN; Protocol; Per Protocol PRN Reason: Hypoglycemia Protocol Insulin Human Regular (Novolin R) 0 unit SC ACHS [facility] PRN Reason: Protocol Last Admin: 04/16/18 07:30 Dose: Not Given Prednisolone Acetate (Pred Forte 1% Opht Susp) 0 ml OD BID [facility] Last Admin: 04/15/18 18:00 Dose: Not Given Simethicone (Mylicon Chew Tab) 80 mg PO Q6 [facility] Last Admin: 04/16/18 05:44 Dose: Not Given Tramadol HCl (Ultram) 50 mg PO TID PRN PRN Reason: Pain, moderate (4-7) Last Admin: 04/15/18 06:44 Dose: 50 mg Vitamin A (Vitamin A & D Oint Ud Foilpak) 1 ea TOP BID [facility] Last Admin: 04/15/18 18:00 Dose: Not Given Vitamin B Complex/Vit C/Folic Acid (Nephro-Chapito) 1 tab PO 0800 [facility] Last Admin: 04/16/18 08:56 Dose: Not Given - Labs Labs: 04/15/18 12:08 04/15/18 12:08
[2018-04-16 11:15] VITALS: PULSE 88
[2018-04-16 11:30] LABS: BASO % 0.4 % (0.0-2.0); EOS # 0.1 K/uL (0.0-0.7); EOS % 1.6 % (0.0-4.0); HEMOGLOBIN 12.4 g/dL (11.0-16.0); LYMPH # 1.3 K/uL (1.0-4.3); LYMPH % 17.2 % (20.0-40.0); MEAN CELL VOLUME 90.5 fL (81.0-99.0); MEAN CORPUSCULAR HEMOGLOBIN 29.9 pg (27.0-31.0); MEAN PLATELET VOLUME 9.4 fL (7.2-11.7); MONO # 0.3 K/uL (0.0-0.8); MONO % 3.5 % (0.0-10.0); NEUT # 5.7 K/uL (1.8-7.0); NEUT % 77.3 % (50.0-75.0); RBC 4.15 Mil/uL (3.80-5.20); RED CELL DISTRIBUTION WIDTH 15.2 % (11.5-14.5); WHITE BLOOD COUNT 7.4 K/uL (4.8-10.8)
[2018-04-16 11:38] LABS: ALB/GLOB RATIO 1.1 (1.0-2.1); ALBUMIN 3.9 g/dL (3.5-5.0); CALCIUM 8.8 mg/dl (8.6-10.4)
--- NOTE | 2018-04-16 12:15 | CP.PCM.PN ---
Subjective - Date & Time of Evaluation Date of Evaluation: 04/16/18 Time of Evaluation: 12:14 - Subjective Subjective: Nephrology Consultation Note: Assessment: Stable non-compliant to HD and missed HD HTN urgency Diabetic chronic Kidney Disease (E11.22) Hypertensive Chronic Kidney Disease (I12.0) End stage renal disease (N18.6) dependence on hemodialysis (Z99.2) (TTS) via PC Anemia (D64.9), Hyperphosphatemia (E83.39), Secondary Hyperparathyroidism (E21.1 ), HTN (I12.0) Plan: Will plan for dialysis today per TTS schedule Continue with Nephrovite 1 tab/ day. PRBC as needed for anemia. not on KWAKU with dialysis as last Hb 13.7 Continue with phos binders, last phos level 4.0 Continue with calcitriol. BP control with meds as ordered. Patient not on RAAS rl. BP usually better controlled or lower in outpt HD unit. anticipate improvement in BP with HD. Glycemic control, Dialysis consistent diet Further work up/management as per primary team Dose meds/antibiotics (if needed) for ESRD status. Avoid fleets enema/magnesium based laxatives. psych and palliative care consult requested. d/c planning Thanks for allowing me to participate in care of your patient. Will follow patient with you. Please call if any Qs. had d/w team Dr Paulino Sales Office: [phone] Chief Complaint; none at this time Reason for consult; ESRD HPI: Pt is a 67 F with hx of ESRD on hemodialysis (TTS) via PC , last dialysis 2 weeks ago as mostly non-compliant to HD and refuses HD often and or cuts treatment time, chronic anemia, hyperphosphatemia, secondary hyperparathyroidism , Diabetes Mellitus, hypertension was transferred to hospital as she missed HD approx for 2 weeks. Renal consult requested for ESRD management. pt was seen, she wasn't much interested in discussing. said, feels okay ROS: unable to obtain much from her as she wasn't communicating much Physical Examination: seen on HD General Appearance: Comfortable, in no acute respiratory distress, co-operative . 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 Breath sounds bilateral equal and clear Heart: Normal rate. s1s2 normal. No rub or gallop. Extremities: trace edema. No varicose veins Neurological: Patient is sleeping but later awake. No focal deficit. Strength bilateral appropriate and equal Skin: Warm and dry. Normal turgor. No rash. Palpitation: Normal elasticity for age Abdomen: Abdomen is soft. Bowel sounds +. There is no abdominal tenderness, no guarding/rigidity or organomegaly Psych: lack insight and has flat affect/mood MSK: no joint tenderness or swelling. Digits and nails normal, no deformity : kidney or bladder not palpable Access: PC Labs/imaging reviewed. Past medical history, past surgical history, family history, social history, allergy reviewed and noted as below Family Hx: no hx of CKD. Non contributory Objective - Vital Signs/Intake and Output Vital Signs (last 24 hours): Temp Pulse Resp BP Pulse Ox 97.8 F 80 17 89/44 L 98 04/16/18 09:30 04/16/18 09:30 04/16/18 09:30 04/16/18 12:00 04/16/18 09:30 - Medications Medications: Current Medications Acetaminophen/Codeine Phosphate (Tylenol/Codeine 300 Mg/30 Mg) 1 ea PO Q6 PRN PRN Reason: Pain, severe (8-10) Last Admin: 04/15/18 11:35 Dose: 1 ea Albuterol (Ventolin Hfa 90 Mcg/Actuation (8 G)) 2 puff IH RQ4 PRN PRN Reason: Shortness of Breath Calcium Acetate (Phoslo) 667 mg PO TID [facility] Last Admin: 04/16/18 10:00 Dose: Not Given Carvedilol (Coreg) 12.5 mg PO BID [facility] Last Admin: 04/16/18 10:00 Dose: Not Given Dextrose (Dextrose 50% Inj) 0 ml IV STAT PRN; Protocol PRN Reason: Hypoglycemia Protocol Dextrose (Glutose 15) 0 gm PO ONCE PRN; Protocol PRN Reason: Hypoglycemia Protocol Famotidine (Pepcid) 20 mg PO HS [facility] Last Admin: 04/15/18 21:35 Dose: Not Given Furosemide (Lasix) 40 mg PO DAILY [facility] Last Admin: 04/16/18 10:00 Dose: Not Given Glucagon (Glucagen Diagnostic Kit) 1 mg IM STAT PRN; Protocol PRN Reason: Hypoglycemia Protocol Guaifenesin/Dextromethorphan (Robitussin Dm) 5 ml PO Q6H PRN PRN Reason: Cough Heparin Sodium (Porcine) (Heparin) 5,000 units SC Q8 [facility] Last Admin: 04/16/18 05:43 Dose: Not Given Heparin Sodium (Porcine) (Heparin) 3,700 units IVP TTS [facility] Stop: 04/23/18 10:01 Hydralazine HCl (Apresoline) 25 mg PO Q4 PRN PRN Reason: Other Dextrose (Dextrose 5% In Water 1000 Ml) 1,000 mls @ 0 mls/hr IV .Q0M PRN; Protocol; Per Protocol PRN Reason: Hypoglycemia Protocol Insulin Human Regular (Novolin R) 0 unit SC ACHS [facility] PRN Reason: Protocol Last Admin: 04/16/18 12:07 Dose: Not Given Prednisolone Acetate (Pred Forte 1% Opht Susp) 0 ml OD BID [facility] Last Admin: 04/16/18 10:00 Dose: Not Given Simethicone (Mylicon Chew Tab) 80 mg PO Q6 [facility] Last Admin: 04/16/18 12:07 Dose: Not Given Tramadol HCl (Ultram) 50 mg PO TID PRN PRN Reason: Pain, moderate (4-7) Last Admin: 04/15/18 06:44 Dose: 50 mg Vitamin A (Vitamin A & D Oint Ud Foilpak) 1 ea TOP BID [facility] Last Admin: 04/16/18 10:00 Dose: Not Given Vitamin B Complex/Vit C/Folic Acid (Nephro-Chapito) 1 tab PO 0800 [facility] Last Admin: 04/16/18 08:56 Dose: Not Given - Labs Labs: 04/16/18 11:15 04/16/18 11:15
[2018-04-16 13:41] VITALS: BP 82/42; RESP 20; TEMP 98; O2SAT 99
--- NOTE | 2018-04-16 13:55 | PCM.PSYCH ---
Initial Psychiatric Evaluation - Initial Psychiatric Evaluation Chief Complaint (in patient's own words): "I'm fine" History of Present Illness and Precipitating Events: The pt is seen, chart reviewed and case discussed Furniture Designer also spoke to her brother with her permission. Mr. Grewal says he is her legal guardian. Pt lives at [facility], she is alone but she says she has 4 daughters. Pt is confused and irritable, very post historian. Consultation is asked for capacity to make medical decisions. She replies most questions with questions and gives irate, at times sarcastic answers. She also doesn't know the time or place except for being in a hospital She knows she is getting hemodialysis (got one today) but cannot explain why she refuses at times. She could not verbalize the risks of not getting dialysis or refusing important blood work, medications or food She is more focused on who is doing what and it appears she may be paranoid and very anxious due to not knowing what's going on (plus she is blind). Denies SI, HI but again, she is evasive and hostile. Mr. Grewal agrees that the pt needs HD and meds, but he is against psych meds ( agreed with anxiety/sleep meds, though) He reported that the pt sometimes refuses HD even though "she knows" the risks. "It's her personality" he said. Then, w/o HD, she gets very confused, delirious. Current Medications: Active Medications Generic Name Dose Route Start Last Admin Trade Name Freq PRN Reason Stop Dose Admin Acetaminophen/Codeine Phosphate 1 ea 04/14/18 17:39 04/15/18 11:35 Tylenol/Codeine 300 Mg/30 Mg PO 1 ea Q6 PRN Administration Pain, severe (8-10) Albuterol 2 puff 04/14/18 17:40 Ventolin Hfa 90 Mcg/Actuation (8 G) IH RQ4 PRN Shortness of Breath Calcium Acetate 667 mg 04/14/18 18:00 04/16/18 10:00 Phoslo PO Not Given TID JAVIER Carvedilol 12.5 mg 04/15/18 10:00 04/16/18 10:00 Coreg PO Not Given BID JAVIER Dextrose 0 ml 04/14/18 18:35 Dextrose 50% Inj IV STAT PRN Hypoglycemia Protocol Protocol Dextrose 0 gm 04/14/18 18:35 Glutose 15 PO ONCE PRN Hypoglycemia Protocol Protocol Famotidine 20 mg 04/14/18 22:00 04/15/18 21:35 Pepcid PO Not Given HS JAVIER Furosemide 40 mg 04/15/18 10:00 04/16/18 10:00 Lasix PO Not Given DAILY JAVIER Glucagon 1 mg 04/14/18 18:35 Glucagen Diagnostic Kit IM STAT PRN Hypoglycemia Protocol Protocol Guaifenesin/Dextromethorphan 5 ml 04/14/18 17:50 Robitussin Dm PO Q6H PRN Cough Heparin Sodium (Porcine) 5,000 units 04/14/18 22:00 04/16/18 05:43 Heparin SC Not Given Q8 JAVIER Heparin Sodium (Porcine) 3,700 units 04/16/18 10:00 04/16/18 12:20 Heparin IVP 04/23/18 10:01 3,700 units TTS JAVIER Administration Hydralazine HCl 25 mg 04/15/18 14:53 Apresoline PO Q4 PRN Other Dextrose 1,000 mls @ 0 mls/hr 04/14/18 18:35 Dextrose 5% In Water 1000 Ml IV .Q0M PRN Hypoglycemia Protocol Protocol Per Protocol Insulin Human Regular 0 unit 04/14/18 22:00 04/16/18 12:07 Novolin R SC Not Given ACHS [facility] Protocol Prednisolone Acetate 0 ml 04/14/18 18:00 04/16/18 10:00 Pred Forte 1% Opht Susp OD Not Given BID [facility] Simethicone 80 mg 04/14/18 18:00 04/16/18 12:07 Mylicon Chew Tab PO Not Given Q6 JAVIER Tramadol HCl 50 mg 04/14/18 17:52 04/15/18 06:44 Ultram PO 50 mg TID PRN Administration Pain, moderate (4-7) Vitamin A 1 ea 04/14/18 18:00 04/16/18 10:00 Vitamin A & D Oint Ud Foilpak TOP Not Given BID [facility] Vitamin B Complex/Vit C/Folic Acid 1 tab 04/15/18 08:00 04/16/18 08:56 Nephro-Chapito PO Not Given 0800 [facility] Past Psychiatric History - Past Psychiatric History Previous Treatment History: None (no previous admission, treatment, suicide attempt) Pertinent Medical Hx (Current Medical&Sleep Prob, Allergies): Allergies Allergy/AdvReac Type Severity Reaction Status Date / Time No Known Allergies Allergy Verified 08/05/15 06:38 Albuterol HFA [Ventolin HFA 90 mcg/actuation (8 g)] 2 puff IH Q4 PRN 10/13/17 Acetaminophen [Tylenol] 650 mg PO DAILY 04/14/18 Calcium Acetate [Phoslo] 667 mg PO TID 04/14/18 Carvedilol [Coreg] 12.5 mg PO QOD6 04/14/18 Famotidine [Pepcid] 20 mg PO HS 04/14/18 Insulin Human Regular [Novolin R] 0 unit IJ ACHS 04/14/18 Prednisolone Acetate [Pred Forte] 1 ml OD BID 04/14/18 Simethicone [Mylicon Chew Tab] 80 mg PO Q6 04/14/18 traMADol [Ultram] 50 mg PO TID 04/14/18 Review of Systems - Neurological Neurological: Confusion - Psychiatric Psychiatric: Abnormal Sleep Pattern, Anxiety, Confusion, Difficulty Concentrating, Irritability, Mood Swings. absent: Homicidal Ideation, Suicidal Ideation Mental Status Examination - Personal Presentation Personal Presentation: Looks older than stated age - Affect Affect: Constricted - Motor Activity Motor Activity: Calm - Reliability in Providing Information Reliability in Providing Information: Fair - Speech Speech: Disorganized - Mood Mood: Anxious, Other (irate) - Formal Thought Process Formal Thought Process: Paranoia - Cognitive Functions Orientation: Person, Place (only hospital) Sensorium: Alert Attention/Concentration: Easily distracted Abstract Thinking: Dyer Estimate of Intelligence: Below average Judgement: Imparied, as evidence by: Poor judgement Memory: Recent impaired, as evidence by: Inability to recall events of the day, Remote impaired as evidenced by: Inability to recall sig life events - Risk Risk: Diminished functioning - Strength & Assets Inventory Strength & Assets Inventory: Family support - Limitations Limitations: Other DSM 5 DX - DSM 5 DSM 5 Diagnosis: r/o Delirium due to medical reasons Anxiety disorder - unspecified Psychotic disorder - unspecified r/o starting dementia Personality d/o - unspecified - Recommended/Plan of Treatment Treatment Recommendations and Plan of Treatment: The pt does NOT have capacity to make medical decisions due to her not fully understanding and reporting the risks of not getting treatment. Low dose klonopin in AM and trazodone at HS may help with her irritability and anxiety Low dose risperidone (0.5 or 1 mg) may have helped with her paranoia and irritability but her guardian did not want it (please contact him again) Please confirm guardianship papers and advocate if he does not have one Support and psychoed Frequent orientation Treat underlying conditions, ie HD as scheduled for delirium to disappear She may be at her baseline with this presentation per her brother Psych will sign off 33 min
--- NOTE | 2018-04-16 14:59 | CP.PCM.DIS ---
<Emperatriz Lucas - Last Filed: 04/16/18 15:01> Provider - Provider Date of Admission: 04/14/18 15:42 Attending physician: Esteban Phipps DO Consults: Nephsalo, Dr. Henrry Henson, Dr. Nguyễn Time Spent in preparation of Discharge (in minutes): 29 Diagnosis - Discharge Diagnosis (1) ESRD (end stage renal disease) Status: Acute (2) Altered mental status Status: Acute Hospital Course - Lab Results Lab Results: Most Recent Lab Values WBC 7.4 K/uL (4.8-10.8) 04/16/18 11:15 RBC 4.15 Mil/uL (3.80-5.20) 04/16/18 11:15 Hgb 12.4 g/dL (11.0-16.0) 04/16/18 11:15 Hct 37.6 % (34.0-47.0) 04/16/18 11:15 MCV 90.5 fL (81.0-99.0) 04/16/18 11:15 MCH 29.9 pg (27.0-31.0) 04/16/18 11:15 MCHC 33.0 g/dL (33.0-37.0) 04/16/18 11:15 RDW 15.2 % (11.5-14.5) H 04/16/18 11:15 Plt Count 83 K/uL (130-400) L D 04/16/18 11:15 MPV 9.4 fL (7.2-11.7) 04/16/18 11:15 Neut % (Auto) 77.3 % (50.0-75.0) H 04/16/18 11:15 Lymph % (Auto) 17.2 % (20.0-40.0) L 04/16/18 11:15 [place] % (Auto) 3.5 % (0.0-10.0) 04/16/18 11:15 Eos % (Auto) 1.6 % (0.0-4.0) 04/16/18 11:15 Baso % (Auto) 0.4 % (0.0-2.0) 04/16/18 11:15 Neut # (Auto) 5.7 K/uL (1.8-7.0) 04/16/18 11:15 Lymph # (Auto) 1.3 K/uL (1.0-4.3) 04/16/18 11:15 [place] # (Auto) 0.3 K/uL (0.0-0.8) 04/16/18 11:15 Eos # (Auto) 0.1 K/uL (0.0-0.7) 04/16/18 11:15 Baso # (Auto) 0.0 K/uL (0.0-0.2) 04/16/18 11:15 Differential Comment 04/16/18 11:15 Sodium 144 mmol/L (132-148) 04/16/18 11:15 Potassium 3.7 mmol/L (3.6-5.2) 04/16/18 11:15 Chloride 103 mmol/L (98-107) 04/16/18 11:15 Carbon Dioxide 30 mmol/L (22-30) 04/16/18 11:15 Anion Gap 15 (10-20) 04/16/18 11:15 BUN 20 mg/dL (7-17) H 04/16/18 11:15 Creatinine 2.7 mg/dL (0.7-1.2) H 04/16/18 11:15 Est GFR ( Amer) 21 04/16/18 11:15 Est GFR (Non-Af Amer) 18 04/16/18 11:15 POC Glucose (mg/dL) 151 mg/dL (65-110) H 04/16/18 12:04 Random Glucose 88 mg/dL (65-105) 04/16/18 11:15 Calcium 8.8 mg/dl (8.6-10.4) 04/16/18 11:15 Phosphorus 2.5 mg/dL (2.5-4.5) 04/16/18 11:15 Magnesium 1.9 mg/dL (1.6-2.3) 04/16/18 11:15 Total Bilirubin 0.6 mg/dL (0.2-1.3) 04/16/18 11:15 AST 18 U/L (14-36) 04/16/18 11:15 ALT 15 U/L (9-52) 04/16/18 11:15 Alkaline Phosphatase 63 U/L (38-126) 04/16/18 11:15 Total Protein 7.5 g/dL (6.3-8.3) 04/16/18 11:15 Albumin 3.9 g/dL (3.5-5.0) 04/16/18 11:15 Globulin 3.6 gm/dL (2.2-3.9) 04/16/18 11:15 Albumin/Globulin Ratio 1.1 (1.0-2.1) 04/16/18 11:15 - Hospital Course Hospital Course: Patient was evaluated and treated at [facility] from 04/14/18-04/16/18. Patient was admitted needing emergent hemodialysis as she had been refusing at senior living. CBC, CMP drawn. Patient required HD. EKG showed no acute changes. Patient refused chest x-ray. Patient refused accuchecks, vitals, and meds throughout her stay. Patient was given [address] Nguyễn from Psychiatry was consulted to evaluate patient's decision making capacity. Patient is currently medically stable for discharge back to senior living. Patient does not have medical making capacity. Patient is to follow up with PMD , Dr. Sales and Dr. Nguyễn within 1 week of discharge. Patient is to resume HD and continue meds as prescribed. Patient is advised to return to ED with any worsening of symptoms. HPI on admission: "Patient is a 76 year old female with past medical history ESRD on HD, T2DM, HTN , COPD, HLD, CHF [place] [facility] chief complaint of need for dialysis. History was difficult to obtain as patient was not in a good mood and unwilling to cooperate. Patient was sent by PMD as there was concern that the patient was refusing dialysis. Patient is legally blind and complained of pain in her eyes which she states is chronic. At this time she has no other complaint. Denies headache, dizziness, fever, chills, nausea, vomiting, chest pain, shortness of breath, abdominal pain, changes in bowel movements, dysuria. Discharge Exam - Head Exam Head Exam: ATRAUMATIC, NORMAL INSPECTION, NORMOCEPHALIC - ENT Exam ENT Exam: Mucous Membranes Moist, Normal Exam - Neck Exam Neck exam: Normal Inspection - Respiratory Exam Respiratory Exam: Clear to PA & Lateral, NORMAL BREATHING PATTERN, UNREMARKABLE - Cardiovascular Exam Cardiovascular Exam: REGULAR RHYTHM - GI/Abdominal Exam GI & Abdominal Exam: Normal Bowel Sounds, Soft, Unremarkable - Extremities Exam Extremities exam: normal capillary refill, normal inspection, pedal pulses present - Back Exam Back exam: NORMAL INSPECTION - Neurological Exam Neurological exam: Altered - Psychiatric Exam Psychiatric exam: Agitated - Skin Skin Exam: Dry, Intact, Normal Color, Warm Discharge Plan - Follow Up Plan Condition: FAIR Disposition: REHAB FACILITY/REHAB UNIT Instructions: Heart Failure, Adult (DC), Renal Failure Diet (DC), Altered Mental Status (GEN) Additional Instructions: Patient is stable for discharge back to [facility]. Patient is advised to follow up with her primary medical doctor within one week of discharge. Patient is advised to follow up with Dr. Sales within 1 week of discharge. Patient is advised to follow up with psychiatry within one week of discharge. Patient is to continue home meds, as well as new medications Trazodone and Klonopin. Patient is to continue hemodialysis sessions as recommended. Patient advised to return to ED with any worsening of symptoms. Referrals: Ady Nguyễn MD [Staff Provider] - Paulino Sales MD [Staff Provider] - <Esteban Phipps - Last Filed: 04/16/18 18:49> Provider - Provider Date of Admission: 04/14/18 15:42 Attending physician: Esteban Phipps DO Hospital Course - Lab Results Lab Results: Most Recent Lab Values WBC 7.4 K/uL (4.8-10.8) 04/16/18 11:15 RBC 4.15 Mil/uL (3.80-5.20) 04/16/18 11:15 Hgb 12.4 g/dL (11.0-16.0) 04/16/18 11:15 Hct 37.6 % (34.0-47.0) 04/16/18 11:15 MCV 90.5 fL (81.0-99.0) 04/16/18 11:15 MCH 29.9 pg (27.0-31.0) 04/16/18 11:15 MCHC 33.0 g/dL (33.0-37.0) 04/16/18 11:15 RDW 15.2 % (11.5-14.5) H 04/16/18 11:15 Plt Count 83 K/uL (130-400) L D 04/16/18 11:15 MPV 9.4 fL (7.2-11.7) 04/16/18 11:15 Neut % (Auto) 77.3 % (50.0-75.0) H 04/16/18 11:15 Lymph % (Auto) 17.2 % (20.0-40.0) L 04/16/18 11:15 [place] % (Auto) 3.5 % (0.0-10.0) 04/16/18 11:15 Eos % (Auto) 1.6 % (0.0-4.0) 04/16/18 11:15 Baso % (Auto) 0.4 % (0.0-2.0) 04/16/18 11:15 Neut # (Auto) 5.7 K/uL (1.8-7.0) 04/16/18 11:15 Lymph # (Auto) 1.3 K/uL (1.0-4.3) 04/16/18 11:15 [place] # (Auto) 0.3 K/uL (0.0-0.8) 04/16/18 11:15 Eos # (Auto) 0.1 K/uL (0.0-0.7) 04/16/18 11:15 Baso # (Auto) 0.0 K/uL (0.0-0.2) 04/16/18 11:15 Differential Comment 04/16/18 11:15 Sodium 144 mmol/L (132-148) 04/16/18 11:15 Potassium 3.7 mmol/L (3.6-5.2) 04/16/18 11:15 Chloride 103 mmol/L (98-107) 04/16/18 11:15 Carbon Dioxide 30 mmol/L (22-30) 04/16/18 11:15 Anion Gap 15 (10-20) 04/16/18 11:15 BUN 20 mg/dL (7-17) H 04/16/18 11:15 Creatinine 2.7 mg/dL (0.7-1.2) H 04/16/18 11:15 Est GFR ( Amer) 21 04/16/18 11:15 Est GFR (Non-Af Amer) 18 04/16/18 11:15 POC Glucose (mg/dL) 61 mg/dL (65-110) L 04/16/18 16:15 Random Glucose 88 mg/dL (65-105) 04/16/18 11:15 Calcium 8.8 mg/dl (8.6-10.4) 04/16/18 11:15 Phosphorus 2.5 mg/dL (2.5-4.5) 04/16/18 11:15 Magnesium 1.9 mg/dL (1.6-2.3) 04/16/18 11:15 Total Bilirubin 0.6 mg/dL (0.2-1.3) 04/16/18 11:15 AST 18 U/L (14-36) 04/16/18 11:15 ALT 15 U/L (9-52) 04/16/18 11:15 Alkaline Phosphatase 63 U/L (38-126) 04/16/18 11:15 Total Protein 7.5 g/dL (6.3-8.3) 04/16/18 11:15 Albumin 3.9 g/dL (3.5-5.0) 04/16/18 11:15 Globulin 3.6 gm/dL (2.2-3.9) 04/16/18 11:15 Albumin/Globulin Ratio 1.1 (1.0-2.1) 04/16/18 11:15 Attending/Attestation - Attestation I have personally seen and examined this patient.: Yes I have fully participated in the care of the patient.: Yes I have reviewed all pertinent clinical information, including history, physical exam and plan: Yes Notes (Text): 04/16/18 18:47 Medical attending: Patient was seen and examined by me, agrees the above note by the medical record librarian. Patient was seen and examined by me as well. We saw her on the medical floor as well as at hemodialysis. According to the staff at hemodialysis, they have a hard time convincing the patient to get dialysis. Today she was not verbally aggressive with me, and she was relatively cooperative when I spoke with her. She is able to follow very simple step commands on exam. Also spoke with nephrology who explained to us that they're very concerned because when she is outpatient she commonly refuses to have hemodialysis. She was later evaluated by psychiatry, as well as palliative care. The patient is DNR/DNI. Esteban Phipps
[2018-04-16] MEDS ORDERED: traZODone 25 mg Tab PO SCH (22:00)
== END 2018-04-16 22:00 | DRG 291 ==
LOC: C.ER 11:57 → C.9E 15:42 → C.3T 16:05
PROVIDERS: ADMIT Hospitalist; ATTEND Hospitalist
PROC: 5A1D70Z Performance of Urinary Filtration, Intermittent, Less than 6 Hours Per Day (ICD-10-PCS; principal; 2018-04-14)
DX: I13.2 Hypertensive heart and chronic kidney disease with heart failure and with stage 5 chronic kidney disease, or end stage renal disease (principal); N18.6 End stage renal disease; I16.0 Hypertensive urgency; N25.81 Secondary hyperparathyroidism of renal origin; J44.9 Chronic obstructive pulmonary disease, unspecified; I27.20 Pulmonary hypertension, unspecified; Z66 Do not resuscitate; D64.9 Anemia, unspecified; E11.22 Type 2 diabetes mellitus with diabetic chronic kidney disease; E83.39 Other disorders of phosphorus metabolism; I50.9 Heart failure, unspecified; F29 Unspecified psychosis not due to a substance or known physiological condition; F41.9 Anxiety disorder, unspecified; H54.8 Legal blindness, as defined in USA; E78.5 Hyperlipidemia, unspecified; E78.00 Pure hypercholesterolemia, unspecified; Z79.899 Other long term (current) drug therapy; Z83.3 Family history of diabetes mellitus; Z87.891 Personal history of nicotine dependence; Z91.15 Patient's noncompliance with renal dialysis; Z91.19 Patient's noncompliance with other medical treatment and regimen; Z95.0 Presence of cardiac pacemaker; Z99.2 Dependence on renal dialysis